=== PATIENT | female | born 1960 | race Caucasian/White ===

== ENCOUNTER 2017-01-04 11:54 | Day surgery (SDC) | payer OTHER ==
--- NOTE | ~2017-01-04 | OP ---
Record Of Operation [facility] [address] [place]. [address] NAME: JANICE FRIEDMAN : 58 STATUS : [facility]#: [id number] AGE: 56 ADM/REG DATE : 01/04/17 MR#: [id number] REPORT SERV DATE: 01/04/17 DICTATED BY: JANICE YEAGER DATE: 01/04/17 REPORT STATUS : Draft TRANSCRIBED BY: MODL DATE: 01/04/17 DATE OF PROCEDURE: 01/04/2017 SURGEON: Janice Yeager M.D. DEBEAKER: Rosita Bowens CRNA ANESTHESIA: General and local. PREOPERATIVE DIAGNOSIS: Need for intravenous access for chemotherapy administration. POSTOPERATIVE DIAGNOSIS: Need for intravenous access for chemotherapy administration. OPERATION: 1. Placement of a right subclavian vein Port-A-Cath. 2. Intraoperative fluoroscopy. HISTORY: The patient is a 56-year-old female, recently diagnosed with uterine cancer and having undergone radical hysterectomy by Dr. Krishnan. She requires chemotherapy administration along with radiation therapy as further treatment for her disease. She requires Port-A-Cath placement for chemotherapy administration, which is scheduled to begin tomorrow. The procedure has been discussed in detail with her and she agrees to proceed in this fashion. Plan is to leave the port accessed as she will be treated tomorrow. NARRATIVE SUMMARY: After satisfactory general anesthesia via LMA airway, the patient was placed supine with both arms tucked at her sides. Both infraclavicular and lateral neck areas were prepped and draped in the usual fashion. Time-out was called to verify the identity of the patient, review allergies, verify appropriate administration of antibiotics, and verify the appropriate procedure as being Port-A-Cath placement. The patient was placed in Trendelenburg position. A 1% Xylocaine was used to infiltrate the left infraclavicular area. The left subclavian area was punctured percutaneously with fairly poor venous return on a couple of sticks. This did not allow for easy passage of the Seldinger wire through the needle. Further attempts on the left side were abandoned. Further, a local anesthesia was applied to the right infraclavicular area. The right subclavian vein was punctured percutaneously with good venous return. A Seldinger wire was passed through the needle and into the right heart under fluoroscopic guidance. The introducer needle was removed. The puncture site was enlarged and a combined dilator introducer sheath was passed over the wire and into the right subclavian vein. The dilator and wire were removed with good venous return through the introducer sheath. An 8-Bahraini power port type catheter was placed through the sheath and into the right heart. The tear- Record Of Operation [facility] [id number] [facility] [place]. [address] NAME: JANICE FRIEDMAN ZACHERY : 58 STATUS : [facility]#: [id number] AGE: 56 ADM/REG DATE : 01/04/17 MR#: [id number] REPORT SERV DATE: 01/04/17 DICTATED BY: JANICE YEAGER DATE: 01/04/17 REPORT STATUS : Draft TRANSCRIBED BY: VANDANA DATE: 01/04/17 away sheath was removed. The patient was then placed in slight reverse Trendelenburg position. Further local anesthesia was applied to the right infraclavicular fossa. A transverse incision was made inferior to the catheter exit site, and a pocket developed inferiorly in the subcutaneous plane to accommodate the size of the port. A tunnel was made superiorly and the end of the catheter brought within the pocket. After final positioning of the catheter tip at the cavoatrial junction under fluoroscopy, the catheter was trimmed to the appropriate length and appropriate attachments made to the port. The port was accessed using a De La Torre needle with good venous return and easy flushing of the system with heparinized saline. The port was placed within a subcutaneous pocket and secured using a single 2-0 Vicryl suture. Skin edges were then closed using 2-0 Vicryl interrupted subcutaneous suture and 4-0 Monocryl running subcuticular closure for skin. Steri-Strips were applied to the incision. The port was then accessed percutaneously using a right angle De La Torre needle. Again venous blood was readily aspirated, and the system was flushed with heparinized saline. A bulky dry dressing was placed over the access port site and covered with Tegaderm dressings. The patient was awakened and transported to the recovery area in stable condition. Chest x- ray is pending. ESTIMATED BLOOD LOSS: Minimal. Sponge, instrument, and needle counts were all correct. There were no complications noted. JOJO/VANDANA Janice Yeager M.D. / [id number] CC: Kosta Chou [place]
[~2017-01-04 11:54] MED LIST: ALBUTEROL5 INH; DSS PO; GLUCCHONDR PO; MAGOX4 PO; MIRALAX POWDER1 PKT PO; MULTIPLE VIT PO; OS500+D PO; PLAQ200B PO; PRIN10 PO; PROVENT20 INH; SINGULAIR1 PO; XYZAL5 MG PO
== END 2017-01-04 18:05 | disposition home or self-care (01) ==
LOC: SDC 11:54
PROVIDERS: Surgery
PROC: B516ZZA Fluoroscopy of Right Subclavian Vein, Guidance (ICD-10-PCS; 2017-01-04)
PROC: 05H533Z Insertion of Infusion Device into Right Subclavian Vein, Percutaneous Approach (ICD-10-PCS; principal; 2017-01-04 13:15)
DX: Z45.2 Encounter for adjustment and management of vascular access device (principal); J45.909 Unspecified asthma, uncomplicated; K21.9 Gastro-esophageal reflux disease without esophagitis; M32.9 Systemic lupus erythematosus, unspecified; M85.80 Other specified disorders of bone density and structure, unspecified site; Z87.891 Personal history of nicotine dependence; Z90.710 Acquired absence of both cervix and uterus; Z98.890 Other specified postprocedural states
CPT/HCPCS: 71010; 77001; A9270-GY; C1751; J0690; J2250; J2270; J2405; J3010